=== PATIENT | female | born 1980 | race Caucasian/White ===

== ENCOUNTER 2017-10-03 19:44 | Emergency (ER) | payer OTHER ==
[~2017-10-03] VITALS: Ht 154.9 cm; Wt 54.0 kg
--- NOTE | 2017-10-03 20:20 | NUR ---
PT WITH C/O WEAKNESS AND NAUSEA X2 WKS; DR KRAUS TO EXAM
--- NOTE | 2017-10-03 20:45 | NUR ---
IV STARTED LT AC 20G SALINE GRIS; LABS DRAWN AND SENT
[2017-10-03 20:59] LABS: BASOPHILS % (AUTO) 0.2 % (0.0-2.0); EOSINOPHILS # (AUTO) 0.1 K/uL (0.0-0.7); EOSINOPHILS % (AUTO) 0.6 % (0.0-7.0); HEMATOCRIT 38.3 % (37-47); HEMOGLOBIN 12.8 G/DL (12.0-16.0); LYMPHOCYTES # (AUTO) 1.1 K/UL (0.8-4.8); LYMPHOCYTES % (AUTO) 12.1 % (20.5-51.5); MEAN CORPUSCULAR HEMOGLOBIN 30.9 UUG (27.0-31.0); MEAN CORPUSCULAR HGB CONC 34 g/dL (32.0-37.0); MEAN CORPUSCULAR VOLUME 92.3 FL (81.0-99.0); MONOCYTES # (AUTO) 0.4 K/UL (0.1-1.30); MONOCYTES % (AUTO) 4.7 % (0.0-11.0); NEUTROPHILS # (AUTO) 7.6 K/UL (1.8-8.9); NEUTROPHILS % (AUTO) 82.4 % (38.5-71.5); PLATELET COUNT (AUTO) 197 K/UL (150-450); RED BLOOD CELL COUNT(AUTO) 4.15 MIL/UL (4.2-5.4); WHITE BLOOD COUNT (AUTO) 9.2 K/UL (4.0-11.2)
[2017-10-03 21:07] LABS: CREATININE 1.1 mg/dL (0.6-1.3); POTASSIUM 3.3 mmol/L (3.5-5.1)
[2017-10-03 21:13] LABS: BILIRUBIN,DIRECT 0.2 mg/dL (0.0-0.2); BILIRUBIN,TOTAL 0.8 mg/dL (0.2-1.0)
[2017-10-03] MEDS ORDERED: POTASSIUM BICARBONATE/CIT AC 25 MEQ TABLET.EFF PO ONE (21:30)
[2017-10-03] MEDS ORDERED: POTASSIUM BICARBONATE/CIT AC 25 MEQ TABLET.EFF ONE (21:54)
--- NOTE | 2017-10-03 22:14 | NUR ---
FAMILY AT BEDSIDE; DR KRAUS TO [facility] PT
--- NOTE | 2017-10-03 22:46 | NUR ---
IV DC'D; SITE WNL; DR KRAUS TO REVIEW DISCHG AFTERCARE;PT DISCHGED WITH FAMILY AND INSTRUCTIONS FOR HOME STABLE
[2017-10-03 22:52] VITALS: BP 108/63
== END 2017-10-03 22:45 | disposition home or self-care (01) ==
LOC: ER 19:45
DX: R00.2 Palpitations (principal); R53.1 Weakness
CPT/HCPCS: 36415; 71010; 80048; 80076; 83735; 84443; 84484; 84703; 85025; 85379; 85730; 86850; 86900; 86901; 93005; 99285; A4663; 70030-TC